=== PATIENT | male | born 1995 | race Caucasian/White ===

== ENCOUNTER 2020-01-11 20:29 | Emergency (ER) | payer SELFPAY ==
[~2020-01-11] VITALS: Ht 177.8 cm; Wt 53.0 kg
[2020-01-11] MEDS ORDERED: SODIUM CHLORIDE 0.9% 1,000 ML IV ONE (21:19)
[2020-01-11] MEDS ORDERED: KETOROLAC 30MG/ML VIAL IV STA (21:19)
[2020-01-11] MEDS ORDERED: ONDANSETRON HCL 4MG/2ML INJ IV STA (21:19)
[2020-01-11] MEDS ORDERED: MAGNESIUM/ALUMINUM HYDROXIDE/SIMETHICONE 30ML UDC PO ONE (21:30)
[2020-01-11] MEDS ORDERED: VISCOUS LIDOCAINE 2% 15 ML UDC PO ONE (21:30)
[2020-01-11 21:44] LABS: BASOPHILS % 0.6 % (0.0-2.0); EOSINOPHILS % 4.4 % (0.0-5.0); HEMATOCRIT. 47.7 % (42.0-52.0); HEMOGLOBIN. 16.4 g/dL (14.0-18.0); LYMPHOCYTES % 45.2 % (20.0-50.0); MEAN CORPUSCULAR HEMOGLOBIN 31.7 pg (28.0-32.0); MEAN CORPUSCULAR VOLUME 92.3 fL (80.0-94.0); MEAN PLATELET VOLUME 8.5 fl (7.4-10.4); MONOCYTES % 8.3 % (2.0-8.0); NEUTROPHILS % 41.5 % (40.0-76.0); PLATELET 185 x1000/uL (130-400); RED BLOOD CELL COUNT 5.17 mill/uL (4.7-6.1); RED CELL DISTRIBUTION WIDTH 12.9 % (11.6-14.6)
[2020-01-11 21:53] LABS: CHLORIDE 104 mEq/L (98-107)
[2020-01-11 21:57] LABS: ETHANOL BLOOD < 10 mg/dL
[2020-01-11 23:51] VITALS: BP 104/64
[2020-01-12] MEDS ORDERED: FAMOTIDINE 20MG TABLET PO ONE (00:15)
== END 2020-01-12 00:21 | disposition home or self-care (01) ==
LOC: ER 20:29
DX: R10.9 Unspecified abdominal pain (principal)
CPT/HCPCS: 36415; 71045; 80053; 80320; 83690; 83880; 84484; 85025; 93005; 96361; 96374; 96375; 99285; J1885; J2405; J7030; G0480